=== PATIENT | male | born 1965 ===

== ENCOUNTER 2020-06-23 12:52 | Outpatient (REF) | payer MEDICAID, SELFPAY ==
[2020-06-23 21:45] LABS: Abs Immature Grans 0.01 10^3/uL (0.0-0.06); Absolute Basophil Count 0.04 10^3/uL (0.0-0.2); Absolute Eosinophil Count 0.22 10^3/uL (0.0-0.7); Absolute Lymphocyte Count 2.24 10^3/uL (1.2-3.4); Absolute Monocyte Count 0.75 10^3/uL (0.1-0.8); Absolute Neutrophil Count 2.56 10^3/uL (1.2-6.7); Basophils % 0.7; Eosinophils % 3.8; HCT 47.1 % (40.0-50.0); HGB 15.6 g/dL (13.5-17.5); Immature Grans % 0.2; Lymphocytes % 38.5; MCH 29.7 pg (27.0-33.0); MCHC 33.1 % (32.0-36.0); MCV 89.5 fL (80-95); MPV 11.6 fL (8.0-11.0); Monocytes % 12.9; Neutrophils % 43.9; Nucleated RBC 0 %; Platelet Count 266 10^3/uL (130-400); RBC 5.26 10^6/uL (4.36-5.78); RDW 13.6 % (11.8-14.1); RDW-SD 44.6 fL; WBC 5.82 10^3/uL (4.4-10.8)
[2020-06-23 22:16] LABS: ALT 27 U/L (16-63); AST 23 U/L (15-37); Albumin 4.2 g/dL (3.4-5.0); Alkaline Phosphatase 83 U/L (46-116); Anion Gap 8.3 mmol/L (3-11); BUN 13 mg/dL (7-18); Bilirubin, Total 0.5 mg/dL (0.2-1.0); CO2 25.7 mmol/L (21.0-32.0); CREATININE 0.87 mg/dL (0.70-1.30); Calcium 9.3 mg/dL (8.5-10.1); Calculated LDL 98 mg/dL (<100); Chloride 103 mmol/L (98-107); Cholesterol 169 mg/dL (<200); Glucose 108 mg/dL (74-106); HDL Cholesterol 40 mg/dL (40-60); Potassium 4.5 mmol/L (3.5-5.1); Sodium 137 mmol/L (136-145); TSH (W/Ref FT4) 0.92 uIU/mL (0.36-3.74); Total Protein 7.9 g/dL (6.4-8.2); Triglyceride 157 mg/dL (<150); Vitamin B12 373 pg/mL (193-986)
[2020-06-23 22:23] LABS: Vitamin D 25 Total 32.1 ng/ml (30-100)
[2020-06-25 13:45] LABS: PSA, Screening 1.4 ng/mL (0.0-3.5)
== END 2020-06-23 13:12 ==
LOC: NCHCN 12:52
PROVIDERS: Visit Provider Nurse Practitioner Community Health
DX: R25.2 Cramp and spasm (principal); Z13.220 Encounter for screening for lipoid disorders; Z13.0 Encounter for screening for diseases of the blood and blood-forming organs and certain disorders involving the immune mechanism; Z13.29 Encounter for screening for other suspected endocrine disorder; Z12.5 Encounter for screening for malignant neoplasm of prostate; Z13.21 Encounter for screening for nutritional disorder; Z86.39 Personal history of other endocrine, nutritional and metabolic disease
CPT/HCPCS: 80053; 80061; 82306; 84153; 82607; 84443; 85025

== ENCOUNTER 2021-07-06 17:31 | Outpatient (REF) | payer MEDICAID, SELFPAY ==
[2021-07-07 17:32] LABS: PSA, Screening 1.7 ng/mL (0.0-3.5)
== END 2021-07-06 17:32 | disposition home or self-care (01) ==
LOC: NCHCN 17:31
PROVIDERS: Visit Provider Nurse Practitioner Community Health
DX: Z12.5 Encounter for screening for malignant neoplasm of prostate (principal)
CPT/HCPCS: 84153

== ENCOUNTER 2025-01-23 20:13 | Outpatient (REF) | payer MEDICAID, SELFPAY ==
[2025-01-23 22:32] LABS: ALT 18 U/L (16-63); AST 25 U/L (15-37); Albumin 3.6 g/dL (3.4-5.0); Alkaline Phosphatase 80 U/L (46-116); BUN 17 mg/dL (7-18); Bilirubin, Total 0.4 mg/dL (0.2-1.0); CREATININE 1.2 mg/dL (0.70-1.30); Calcium 9.1 mg/dL (8.5-10.1); Chloride 109 mmol/L (98-107); Estimated GFR 69.66 (mL/min/1.73m2); Glucose 101 mg/dL (74-106); Potassium 5.3 mmol/L (3.5-5.1); Sodium 144 mmol/L (136-145); Total Protein 6.9 g/dL (6.4-8.2)
[2025-01-23 22:47] LABS: Calculated LDL 16 mg/dL (<100); Cholesterol 75 mg/dL (<200); HDL Cholesterol 44 mg/dL (>or=40); Triglyceride 79 mg/dL (<150)
== END 2025-01-23 20:14 | disposition home or self-care (01) ==
LOC: NCHCN 20:13
PROVIDERS: Visit Provider Nurse Practitioner Family
DX: Z86.73 Personal history of transient ischemic attack (TIA), and cerebral infarction without residual deficits (principal); Z13.220 Encounter for screening for lipoid disorders
CPT/HCPCS: 80053; 80061